=== PATIENT | female | born 1935 | race Caucasian/White ===

== ENCOUNTER 2017-06-13 09:40 | Emergency (ER) | payer OTHER ==
[~2017-06-13] VITALS: Ht 154.9 cm; Wt 68.2 kg
[~2017-06-13 09:40] MED LIST: ASPIRIN E.C.81 M1 PO; CYMBALTA30 MG PO; Desyrel PO; Fosamax PO; KEFLEX500 MG PO; Keflex PO; LASIX20 MG PO; Livalo PO; MYSOLINE50 M1 PO; NEXIUM40 MG PO; TOPROL XL50 MG PO; VASOTEC10 M1 PO; ZANAFLEX4 M1 PO
[2017-06-13 11:15] LABS: HEMATOCRIT 29.3 % (36.0-46.0); MCH 29.4 PG (29.0-34.0); MCHC 31.4 G/DL (30.0-36.0); MCV 93.6 FL (83-99); PLATELET COUNT 236 K/uL (156-360); RBC DIS.WIDTH-CV 16.5 % (11.8-14.6); RBC DIS.WIDTH-SD 57.1 % (39-53); RED BLOOD COUNT 3.13 M/uL (3.80-5.20); WHITE BLOOD COUNT 10.3 K/uL (4.1-10.2)
[2017-06-13 11:23] LABS: CHLORIDE 109 mEq/L (99-109)
[2017-06-13 11:24] LABS: POTASSIUM 3.5 mEq/L (3.7-5.4); SODIUM 142 mEq/L (136-147)
[2017-06-13 11:25] LABS: GLUCOSE 85 mg/dL (70-99)
[2017-06-13 11:27] LABS: ANION GAP 15 MEQ/L (2-14)
[2017-06-13 11:29] LABS: GFR ESTIMATE (CALCULATED) 46 mL/min/
[2017-06-13 11:30] LABS: UREA NITROGEN (BUN) 29 mg/dL (9-23)
[2017-06-13 11:37] LABS: TROP-I INTERPRETATION NEGATIVE; TROPONIN-I 0.03 ng/mL (0.0-0.30)
[2017-06-13 13:48] LABS: ADD MIUA? YES; BILIRUBIN NEGATIVE; BLOOD SMALL; COLOR COLORLESS ((YELLOW)); GLUCOSE (STRIP) NEGATIVE; KETONES NEGATIVE; LEUKOCYTES MODERATE; NITRITE NEGATIVE; PROTEIN (STRIP) NEGATIVE; SPECIFIC GRAVITY 1.004 (1.000-1.030); UROBILINOGEN 0.2 MG/DL (0.2-1.0)
[2017-06-13 13:53] LABS: BACTERIA RARE /HPF; EPITHELIAL CELLS RARE /HPF; MUCUS NONE SEEN /LPF; RED BLOOD CELLS 0-5 /HPF (0-5); UCUL ADDED? YES
[2017-06-13 14:44] VITALS: BP 154/77
== END 2017-06-13 14:47 | disposition home or self-care (01) ==
LOC: EME 09:40
PROVIDERS: Emergency Medicine
PROC: 0HQ0XZZ Repair Scalp Skin, External Approach (ICD-10-PCS; principal; 2017-06-13)
DX: S01.01XA Laceration without foreign body of scalp, initial encounter (principal); W01.190A Fall on same level from slipping, tripping and stumbling with subsequent striking against furniture, initial encounter; Y92.003 Bedroom of unspecified non-institutional (private) residence as the place of occurrence of the external cause; I11.0 Hypertensive heart disease with heart failure; I50.9 Heart failure, unspecified; Z79.82 Long term (current) use of aspirin; R29.6 Repeated falls
CPT/HCPCS: 70450; 71020; 72125; 72170; 72192; 72220; 80048; 81003; 84484; 85027; 87086; 93005; 99281; 99284; G8978 GP CI; G8979 GP CH; G8987 GO CI; G8988 GO CH